=== PATIENT | female | born 1970 | race Caucasian/White ===

== ENCOUNTER 2020-04-09 13:07 | Outpatient (CLI) | payer OTHER ==
--- NOTE | 2020-04-09 17:33 | RAD ---
LUMBAR SPINE THREE VIEWS: 04/09/20 No prior films are available for comparison. Mild thoracolumbar scoliosis convexed right is noted. No fracture was seen in the lumbar region. The disc spaces are normal in height. There is beginning to be some scalloping of the end plates of T12 and T11. This may be true of T10 but it is not seen suffi ciently well to be sure. If the patient had low thoracic pain, then further imaging could be helpful. The lumbar regions showed no acute findings at all. The SI joints are symmetrical. IMPRESSION: No acute lumbar findings. See comments above regarding the lower thoracic spine. POS: HOME
== END 2020-04-09 13:08 | disposition home or self-care (01) ==
LOC: BURRAD 13:07
PROVIDERS: ATTEND Nurse Practitioner Family
DX: M54.5 Low back pain (principal); C50.919 Malignant neoplasm of unspecified site of unspecified female breast; V89.2XXA Person injured in unspecified motor-vehicle accident, traffic, initial encounter
CPT/HCPCS: 72100

== ENCOUNTER 2020-11-30 10:07 | Emergency (ER) | payer SELFPAY ==
[2020-11-30] MEDS ORDERED: Cyclobenzaprine 10 MG TAB ONE (10:28)
[2020-11-30] MEDS ORDERED: Ibuprofen 200 MG TAB ONE (10:29)
== END 2020-11-30 11:00 | disposition home or self-care (01) ==
LOC: BURERS 10:07
DX: S20.211A Contusion of right front wall of thorax, initial encounter (principal); F17.210 Nicotine dependence, cigarettes, uncomplicated; E78.5 Hyperlipidemia, unspecified; X58.XXXA Exposure to other specified factors, initial encounter
CPT/HCPCS: 93005

== ENCOUNTER 2024-06-07 09:10 | Emergency (ER) | payer OTHER ==
[2024-06-07] MEDS ORDERED: Acetaminophen 500 MG TAB ONE (09:34)
== END 2024-06-07 10:29 | disposition home or self-care (01) ==
LOC: BURERS 09:10
DX: S20.212A Contusion of left front wall of thorax, initial encounter (principal); J44.9 Chronic obstructive pulmonary disease, unspecified; F17.290 Nicotine dependence, other tobacco product, uncomplicated; Y04.8XXA Assault by other bodily force, initial encounter
CPT/HCPCS: 71046